=== PATIENT | male | born 1990 | race African-American/Black ===

== ENCOUNTER 2016-08-22 06:10 | Emergency (ER) | payer OTHER ==
[2016-08-22 06:32] VITALS: BP 118/73
[2016-08-22] MEDS ORDERED: Diphtheria,Pertussis(Acell),Tetanus Vaccine 0.5 ML SDV IM ONE (06:32)
[2016-08-22] MEDS ORDERED: Bacitracin Oint 1 GM U/D Packet TOP ONE (07:57)
[2016-08-22] MEDS ORDERED: Ketorolac 60 MG/2 ML SDV IM ONE (08:44)
[2016-08-22] MEDS ORDERED: ceFAZolin 1 GM Vial IVPUSH ONE (08:44)
--- NOTE | 2016-08-22 12:42 | ER ---
ADDENDUM: TREATMENT IN EMERGENCY ROOM: He was given Ancef 1 g IV push and Toradol 60 mg IM for pain management. A call has been placed to the hand surgeon in [place] to discuss additional management as needed and to arrange appointment for followup. A call is pending at the time of this dictation. CHERYL Barber MD /[id number]
--- NOTE | 2016-08-22 12:50 | ER ---
REASON FOR VISIT: Left index finger injury. HISTORY: This 26-year-old male, who works at [employer] sustaining injury to his left index finger at work this morning. He was at his workstation, putting 2 pieces of metal together when his finger got caught between 2 pieces of metal. There was a laceration injury to the tip of the left index finger. His last tetanus was in 2010. HOME MEDICATIONS: None. ALLERGIES: None known. He does complain of some numbness about the tip of the finger and some inability to move the tip of the finger. OBJECTIVE: GENERAL: He is alert. VITAL SIGNS: He is afebrile. Pulse is 70, BP is 118/73, respirations 18, and O2 sats 99%. EXTREMITIES: The left index finger is examined after it was anesthetized with 1% lidocaine plain in a digital block. The tip of the finger had some numbness in it before it was anesthetized. Afterwards, it was anesthetized, there was fairly good response. There was about 1 cm laceration just distal to the DIP joint and bony fragments were visualized underneath that, did not visualize any tendon structure. He is unable to flex the DIP joint. TREATMENT IN THE EMERGENCY ROOM: The wound was initially cleansed by nursing staff prior to my arrival. The digital block was performed with 1% lidocaine plain. Wound was then dressed with some bacitracin. Telfa pad and dressing was applied and aluminium finger splint was applied for protection. He was administered Tdap in the emergency room to update his tetanus status. X-rays of the wound do reveal a fracture of the distal phalanx just distal tip of the DIP joint. While I was examining the wound, I did put one suture to approximate the skin to keep it over the exposed bone. This is a 5-0 nylon interrupted suture. ASSESSMENT: Open fracture, distal phalanx left index finger. PLAN: 1. Patient will be discharged. He is advised to see a hand surgeon at [facility] either today or tomorrow. This is for further evaluation and follow up. 2. Start Augmentin 875 mg 1 b.i.d. #20. 3. Hydrocodone 5/325 one q.4 p.r.n. pain #15. Keep the finger dressing and splint intact until he sees the hand surgeon. Workforce safety forms completed and [employer] work ability form completed. He will probably need to keep the splint on his finger for about 6 weeks and that is going to limit his use of that hand for employment purposes. CHERYL Barber MD /[id number]
== END 2016-08-22 09:55 ==
LOC: LL.ED 06:10
DX: S62.631B Displaced fracture of distal phalanx of left index finger, initial encounter for open fracture (principal); W23.0XXA Caught, crushed, jammed, or pinched between moving objects, initial encounter; Y92.89 Other specified places as the place of occurrence of the external cause; Y99.0 Civilian activity done for income or pay
CPT/HCPCS: 12001; 73140; 90471; 90715; 96372; 96374; 99284; J0690; J1885; L3999; 26765

== ENCOUNTER 2017-02-07 00:22 | Emergency (ER) | payer OTHER ==
[2017-02-07 00:26] VITALS: BP 115/78
--- NOTE | 2017-02-07 00:38 | EDM.PDOC ---
ED HPI GENERAL MEDICAL PROBLEM - General Chief Complaint: General Stated Complaint: R hand pain Time Seen by Provider: 02/07/17 00:30 Source of Information: Reports: Patient. Denies: Old Records History Limitations: Reports: Language Barrier - History of Present Illness INITIAL COMMENTS - FREE TEXT/NARRATIVE: The patient drove himself to the emergency room via private automobile for evaluation of persistent 10/10 sharp right hand/proximal palmar and wrist tenderness after using a hammer and pounding on a cylinder with the handle also hitting his wrist at about 21:45 hours at work today. He is right-handed and denies any previous injuries to this region. Patient did try to use his left hand thereafter, however his right hand pain persists at this time. No history of paresthesias, neurological deficits or other complaints or injuries. He did not take any medications or have any other treatment for his symptoms. No recent history of abdominal pain, heartburn, nausea, diarrhea, melena, gross hematochezia, or any food intolerance, including fatty foods, etc.. The patient also denies any recent fever, cough, wheezing, dyspnea, etc.. Onset: Today, Sudden Onset Date: 02/06/17 Onset Time: 21:30 Duration: Constant Location: Reports: Upper Extremity, Right. Denies: Radiates to Quality: Reports: Sharp Severity: Severe Improves with: Reports: Rest Worsens with: Reports: Movement Context: Reports: Trauma (As above) Associated Symptoms: Reports: No Other Symptoms. Denies: Cough, Diaphoresis, Fever/Chills, Nausea/Vomiting, Weakness Treatments ROLFER: Reports: Other (see below) (None) Right Lower Hand Pain Score (Numeric/FACES): 10 - Related Data Allergies Allergy/AdvReac Type Severity Reaction Status Date / Time No Known Allergies Allergy Verified 02/07/17 00:29 Home Meds: Home Meds . [No Known Home Meds] 02/07/17 [History] Past Medical History Musculoskeletal History: Reports: Fracture, Other (See Below) Other Musculoskeletal History: Distal phalangeal open fracture of digit #2 of the left hand on 08/22/16 Social & Family History - Tobacco Use Smoking Status *Q: Never Smoker - Living Situation & Occupation Occupation: Employed ([employer]) ED ROS GENERAL - Review of Systems Review Of Systems: ROS reveals no pertinent complaints other than HPI. ED EXAM, GENERAL - Physical Exam Exam: See Below Exam Limited By: No Limitations General Appearance: Alert, WD/WN, No Apparent Distress Head: Atraumatic, Normocephalic Neck: Normal Inspection, Supple, Non-Tender, Full Range of Motion. No: Lymphadenopathy (L), Lymphadenopathy (R), Thyromegaly Respiratory/Chest: No Respiratory Distress, Lungs Clear, Normal Breath Sounds, No Accessory Muscle Use, Chest Non-Tender. No: Pleural Rub, Retractions Cardiovascular: Normal Peripheral Pulses, Regular Rate, Rhythm, No Edema, No Gallop, No JVD, No Murmur, No Rub. No: Gallop/S3, Gallop/S4, Friction Rub Peripheral Pulses: 2+: Radial (L), Radial (R) GI/Abdominal: Normal Bowel Sounds, Soft, Non-Tender, No Organomegaly, No Distention, No Abnormal Bruit, No Mass (Male) Exam: Deferred Rectal (Males) Exam: Deferred Back Exam: Normal Inspection, Full Range of Motion. No: CVA Tenderness (L), CVA Tenderness (R), Muscle Spasm Extremities: Normal Range of Motion, No Pedal Edema, Normal Capillary Refill, Other (Mild palpation pain over the mid base of the palm of the right hand with no foreign body, ecchymosis, swelling, crepitation, deformity, or sign of fracture, no snuffbox tenderness). No: Joint Swelling Neurological: Alert, Oriented, CN II-XII Intact, Normal Cognition, Normal Gait, No Motor/Sensory Deficits Psychiatric: Normal Affect, Normal Mood Skin Exam: Warm, Dry, Intact, Normal Color, No Rash. No: Ecchymosis, Wound/ Incision Lymphatic: No Adenopathy Course - Vital Signs Last Recorded V/S: Last Vital Signs Temp 36.6 C 02/07/17 00:23 Pulse 59 L 02/07/17 00:23 Resp 16 02/07/17 00:23 BP 115/78 02/07/17 00:23 Pulse Ox 100 02/07/17 00:23 Vital Signs - 24 hr 02/07/17 00:23 Temperature [ 36.6 C Temporal] Pulse, 59 L Peripheral [ Left Pulse Oximetry] Respiratory 16 Rate Blood Pressure 115/78 [Right Upper Arm] O2 Sat by Pulse 100 Oximetry - Orders/Labs/Meds Orders: Active Orders 24 hr Category Date Time Status Hand Comp Min 3V Rt [CR] Stat Exams 02/07/17 00:39 Ordered Obtain Past Medical Record [OM.PC] Routine Oth 02/07/17 00:39 Active Labs: None Meds: None - Radiology Interpretation Free Text/Narrative:: X-rays of the right hand, 3 views, shows no evidence of fracture, dislocation, foreign body, etc. Departure - Departure Time of Disposition: 01:25 Disposition: Home, Self-Care 01 Condition: Good Clinical Impression: Contusion Qualifiers: Encounter type: initial encounter Contusion area: hand Laterality: right Qualified Code(s): S60.221A - Contusion of right hand, initial encounter - Discharge Information Instructions: Contusion, [id number] Referrals: PCP,None [Primary Care Provider] - Forms: ED Department Discharge Additional Instructions: 1. Follow up with your regular provider in one week or earlier, if you want to return back to normal work duties, for reevaluation and change of your work restrictions 2. Tylenol 650 mg by mouth every 4 hours and/or OTC ibuprofen 2-3 tabs by mouth every 6 hours with food as directed./needed. 3. BenGay or equivalent, heating pad, and/or ice packs as directed. 4. Work excuse- See Form - Problem List & Annotations (1) Contusion SNOMED Code(s): 392001014 Code(s): T14.8 - OTHER INJURY OF UNSPECIFIED BODY REGION Status: Acute Priority: High Onset Date: 02/06/17 Annotation/Comment:: Minor hand contusion. Symptomatic relief as per discharge instructions. [employer] work excuse and Workmen's Compensation forms were completed. Ice packs were applied in the emergency room Qualifiers: Encounter type: initial encounter Contusion area: hand Laterality: right Qualified Code(s): S60.221A - Contusion of right hand, initial encounter - Problem List Review Problem List Initiated/Reviewed/Updated: Yes - My Orders Last 24 Hours: My Active Orders 02/07/17 00:39 Hand Comp Min 3V Rt [CR] Stat Obtain Past Medical Record [OM.PC] Routine - Assessment/Plan Last 24 Hours: My Active Orders 02/07/17 00:39 Hand Comp Min 3V Rt [CR] Stat Obtain Past Medical Record [OM.PC] Routine Assessment:: As above Plan: As above. Extensive precautions were given to the patient, who is in agreement with the treatment plan. See Patient Instructions for further treatment and plan.
== END 2017-02-07 01:25 | disposition home or self-care (01) ==
LOC: LL.ED 00:22
DX: S60.221A Contusion of right hand, initial encounter (principal); W22.8XXA Striking against or struck by other objects, initial encounter; Y99.0 Civilian activity done for income or pay; Y92.69 Other specified industrial and construction area as the place of occurrence of the external cause
CPT/HCPCS: 73130-RT; 99284

== ENCOUNTER 2018-07-20 21:32 | Emergency (ER) | payer BC, OTHER ==
[2018-07-20] MEDS ORDERED: Sodium Chloride 0.9% 1,000 ML IV ONE (21:37)
[2018-07-20 21:43] VITALS: BP 122/81
[2018-07-20] MEDS ORDERED: Morphine 10 MG/ML Syringe IVPUSH ONE (21:44)
[2018-07-20] MEDS ORDERED: Ondansetron 4 MG/2 ML SDV IVPUSH ONE (21:44)
--- NOTE | 2018-07-20 21:51 | EDM.PDOC ---
ED HPI GENERAL MEDICAL PROBLEM - General Chief Complaint: General Stated Complaint: ABD PN Time Seen by Provider: 07/20/18 21:35 Source of Information: Reports: Patient History Limitations: Reports: No Limitations - History of Present Illness INITIAL COMMENTS - FREE TEXT/NARRATIVE: Patient comes by EMS for evaluation of abdominal pain. Started at 5pm today. No history of similar pain. Squire fine prior to these symptoms developing. Pain affects entire abdomen but is worse LLQ and left lower back. Improves when lying on right side. Worse when lying on left side. Has not had much to eat/drink today. Has not taken pain meds. No nausea/emesis/bowel changes. No BM today. Denies UTI symptoms. No fever/chills. Denies HEENT/Resp/CV/Chest complaints. No other pain complaint. Pain does not radiate anywhere. No limb/neuro/MS complaints or changes. ABDOMEN Pain Score (Numeric/FACES): 10 - Related Data Allergies Allergy/AdvReac Type Severity Reaction Status Date / Time No Known Allergies Allergy Verified 07/20/18 21:43 Home Meds: Home Meds Ondansetron [Zofran ODT] 4 mg PO Q6H PRN #5 tab.dis 07/21/18 [Rx] Past Medical History - Past Health History Medical/Surgical History: Denies Medical/Surgical History Musculoskeletal History: Reports: Fracture, Other (See Below) Other Musculoskeletal History: Distal phalangeal open fracture of digit #2 of the left hand on 08/22/16 Social & Family History - Tobacco Use Smoking Status *Q: Never Smoker - Caffeine Use Caffeine Use: Reports: Coffee - Alcohol Use Alcohol Use History: No - Recreational Drug Use Recreational Drug Use: No Drug Use in Last 12 Months: No - Living Situation & Occupation Occupation: Employed ([employer]) ED ROS GENERAL - Review of Systems Review Of Systems: ROS reveals no pertinent complaints other than HPI. ED EXAM, GENERAL - Physical Exam Exam: See Below Exam Limited By: No Limitations General Appearance: Alert, WD/WN, Mild Distress (appears uncomfortable, lying on right side) Eye Exam: Bilateral Eye: EOMI, PERRL Ears: Normal External Exam Nose: No: Nasal Deformity, Nasal Swelling, Nasal Drainage Throat/Mouth: Normal Lips, Normal Voice, No Airway Compromise Head: Atraumatic, Normocephalic Neck: Normal Inspection, Supple, Non-Tender, Full Range of Motion Respiratory/Chest: No Respiratory Distress, Lungs Clear, Normal Breath Sounds, No Accessory Muscle Use, Chest Non-Tender Cardiovascular: Normal Peripheral Pulses, Regular Rate, Rhythm, No Edema, No Murmur, Bradycardia Peripheral Pulses: 2+: Radial (L), Radial (R) GI/Abdominal: Soft, Guarding (mild), Rebound (mild), Tender (generalized tenderness noted, appears slightly more tender in periumbilical and LLQ areas), Abnormal Bowel Sounds (decreased throughout). No: Rigid (Male) Exam: Deferred Rectal (Males) Exam: Deferred Back Exam: No: CVA Tenderness (L), CVA Tenderness (R), Muscle Spasm, Paraspinal Tenderness (mild tender), Vertebral Tenderness Extremities: Normal Inspection, Non-Tender, No Pedal Edema, Normal Capillary Refill Neurological: Alert, Oriented, Normal Cognition, No Motor/Sensory Deficits Psychiatric: Normal Affect, Normal Mood Skin Exam: Warm, Dry, Intact, Normal Color Course - Vital Signs Last Recorded V/S: Last Vital Signs Temp 36.7 C 07/20/18 21:33 Pulse 56 L 07/20/18 21:33 Resp 16 07/20/18 21:33 BP 122/81 07/20/18 21:33 Pulse Ox 100 07/20/18 21:33 - Orders/Labs/Meds Orders: Active Orders 24 hr Category Date Time Status Abdomen Pelvis w Cont [CT] Stat Exams 07/20/18 21:43 Ordered Abdomen Pelvis wo Cont [CT] Stat Exams 07/20/18 21:37 Stop Req UA W/MICROSCOPIC [URIN] Stat Lab 07/20/18 21:36 Ordered Sodium Chloride 0.9% [Saline Flush] Med 07/20/18 21:45 Active 10 ml FLUSH ASDIRECTED PRN Saline Lock Insert [OM.PC] Routine Oth 07/20/18 21:45 Ordered Medication Orders Sodium Chloride (Saline Flush) 10 ml FLUSH ASDIRECTED PRN PRN Reason: Keep Vein Open Last Admin: 07/20/18 22:19 Dose: 10 ml Labs: Laboratory Tests 07/20/18 07/20/18 07/20/18 Range/Units 22:05 22:05 22:05 WBC 4.1 (4.0-10.2) K/uL RBC 5.25 (4.33-5.41) M/uL Hgb 15.0 (13.1-16.8) g/dL Hct 43.3 (39.0-49.0) % MCV 82.5 L (84.0-98.0) fL MCH 28.6 (28.2-33.3) pg MCHC 34.6 (31.7-36.0) g/dL RDW 14.0 (11.2-14.1) % Plt Count 125 L (150-350) K/uL Neut % (Auto) 72.1 (45.0-80.0) % Lymph % (Auto) 17.0 (10.0-50.0) % Lucas % (Auto) 8.9 (2.0-14.0) % Eos % (Auto) 1.5 (0.0-5.0) % Baso % (Auto) 0.5 (0.0-2.0) % Neut # (Auto) 2.92 (1.40-7.00) K/uL Lymph # (Auto) 0.69 (0.50-3.50) K/uL Lucas # (Auto) 0.36 (0.00-1.00) K/uL Eos # (Auto) 0.06 (0.00-0.50) K/uL Baso # (Auto) 0.02 (0.00-0.20) K/uL Sodium 137 (136-145) mmol/L Potassium 3.7 (3.5-5.1) mmol/L Chloride 100 (98-107) mmol/L Carbon Dioxide 30.2 (21.0-32.0) mmol/L BUN 15 (7-18) mg/dL Creatinine 0.80 (0.51-1.17) mg/dL Est Cr Clr Drug Dosing 109.37 mL/min Estimated GFR (MDRD) > 60 mL/min Glucose 102 (74-106) mg/dL Calcium 9.5 (8.5-10.1) mg/dL Total Bilirubin 0.5 (0.2-1.0) mg/dL AST 37 (15-37) U/L ALT 28 (12-78) U/L Alkaline Phosphatase 72 (46-116) IU/L Total Protein 7.7 (6.4-8.2) g/dL Albumin 4.1 (3.4-5.0) g/dL Amylase 52 (25-115) U/L Lipase 117 (73-393) U/L Meds: Medications Generic Name Dose Route Start Last Admin Trade Name Kathleen PRN Reason Stop Dose Admin Sodium Chloride 10 ml 07/20/18 21:45 07/20/18 22:19 Saline Flush FLUSH 10 ml ASDIRECTED PRN Administration Keep Vein Open Discontinued Medications Generic Name Dose Route Start Last Admin Trade Name Freq PRN Reason Stop Dose Admin Sodium Chloride 1,000 mls @ 999 mls/hr 07/20/18 21:37 07/20/18 22:20 Normal Saline IV 07/20/18 22:37 999 mls/hr .BOLUS ONE Administration Iopamidol 100 ml 07/20/18 21:58 Isovue-300 (61%) IVPUSH 07/20/18 21:59 ONETIME ONE Morphine Sulfate 5 mg 07/20/18 21:44 07/20/18 22:13 Morphine IVPUSH 07/20/18 21:45 5 mg ONETIME ONE Administration Ondansetron HCl 4 mg 07/20/18 21:44 07/20/18 22:13 Zofran IVPUSH 07/20/18 21:45 4 mg ONETIME ONE Administration Promethazine HCl 25 mg 07/20/18 22:58 07/20/18 23:17 Phenergan IM 07/20/18 22:59 25 mg ONETIME ONE Administration - Re-Assessments/Exams Free Text/Narrative Re-Assessment/Exam: 07/20/18 21:51 CT of abdomen/pelvis ordered given guarding and rebound. IV fluids/labs ordered. MS for pain given. Free Text/Narrative Re-Assessment/Exam: 07/21/18 00:41 Prolonged time until scan due to patient having difficulties drinking contrast. CT scan of abdomen overall unremarkable. No stones noted. Normal appendix. No suggestion of focal infection. CBC and Chem normal. Patient resting more comfortably at this time. Plan for now is to let patient go home and rest. Suspect gastroenteritis. To advance diet as tolerated tomorrow, clear liquids recommended for next 12-24 hours. Rx for Zofran given for PRN use. To get rechecked if no significant improvement noted within next 24 hours. Departure - Departure Time of Disposition: 00:32 Disposition: Home, Self-Care 01 Condition: Good Clinical Impression: Gastroenteritis - Discharge Information *PRESCRIPTION DRUG MONITORING PROGRAM REVIEWED*: Not Applicable *COPY OF PRESCRIPTION DRUG MONITORING REPORT IN PATIENT WAYNE: Not Applicable Prescriptions: Ondansetron [Zofran ODT] 4 mg PO Q6H PRN #5 tab.dis PRN Reason: Nausea Instructions: Viral Gastroenteritis, Adult, [id number] Referrals: PCP,None [Primary Care Provider] - Forms: ED Department Discharge Additional Instructions: Rest. Stick to clear liquid diet for the next 12 hours -24 hours, then advance diet as tolerated. Watch for changes. Follow up as needed for worsening symptoms or if this does not appear to follow up a normal viral course. - My Orders Last 24 Hours: My Active Orders 07/20/18 21:36 UA W/MICROSCOPIC [URIN] Stat 07/20/18 21:37 Abdomen Pelvis wo Cont [CT] Stat 07/20/18 21:43 Abdomen Pelvis w Cont [CT] Stat 07/20/18 21:45 Sodium Chloride 0.9% [Saline Flush] 10 ml FLUSH ASDIRECTED PRN Saline Lock Insert [OM.PC] Routine - Assessment/Plan Last 24 Hours: My Active Orders 07/20/18 21:36 UA W/MICROSCOPIC [URIN] Stat 07/20/18 21:37 Abdomen Pelvis wo Cont [CT] Stat 07/20/18 21:43 Abdomen Pelvis w Cont [CT] Stat 07/20/18 21:45 Sodium Chloride 0.9% [Saline Flush] 10 ml FLUSH ASDIRECTED PRN Saline Lock Insert [OM.PC] Routine
[2018-07-20] MEDS ORDERED: Iopamidol 612 MG/ML 100 ML Bottle IVPUSH ONE (21:58)
[2018-07-20] MEDS: Sodium Chloride 0.9% 10 ML Syringe FLUSH PRN (22:19)
[2018-07-20 22:37] LABS: CHLORIDE,CL 100 mmol/L (98-107); SODIUM,NA 137 mmol/L (136-145)
[2018-07-20] MEDS ORDERED: Promethazine 25 MG/ML SDV IM ONE (22:58)
[2018-07-21] MEDS ORDERED: Ketorolac 30 MG/ML SDV IVPUSH ONE (00:45)
[2018-07-21] MEDS: Sodium Chloride 0.9% 10 ML Syringe FLUSH PRN (00:59)
== END 2018-07-21 01:55 | disposition home or self-care (01) ==
LOC: LL.ED 21:32
DX: K52.9 Noninfective gastroenteritis and colitis, unspecified (principal)
CPT/HCPCS: 36415; 74177; 80053; 81001; 82150; 83690; 85025; 96361; 96372; 96374; 96375; 99284; J1885; J2270; J2405; J2550; J7030; Q9967